=== PATIENT | male | born 1980 | race Caucasian/White ===

== ENCOUNTER 2017-08-15 15:18 | Observation (INO) | payer BC ==
[2017-08-15] MEDS ORDERED: TORADOL 30 MG VIAL IVP PRN (15:53)
[2017-08-15] MEDS: NS 1000 ML 1,000 ML IV SCH ×4 (16:49→22:32)
[2017-08-15 16:54] LABS: BASOPHILS % (AUTO) 0.4 % (0.2-1.0); EOSINOPHILS # (AUTO) 0.1 x10^3/uL (0.0-0.2); MONOCYTES # (AUTO) 0.5 x10^3/uL (0.3-0.8); NEUTROPHILS # (AUTO) 4.9 x10^3/uL (2.2-4.8); RED CELL DISTRIBUTION WIDTH 14.7 % (11.6-16.5)
[2017-08-15 16:58] LABS: HEMOGLOBIN 12.7 g/dL (13.5-18.0); LYMPHOCYTES # (AUTO) 0.9 X10^3/uL (1.3-2.9); LYMPHOCYTES % (AUTO) 13.6 % (21.0-51.0)
[2017-08-15 17:07] LABS: ALANINE AMINOTRANSFERASE 42 Units/L (12-78); ALKALINE PHOSPHATASE 89 Units/L (46-116); AMYLASE 38 Units/L (25-115); ASPARTATE AMINO TRANSFERASE 28 Units/L (15-37); BLOOD UREA NITROGEN 10 mg/dL (7-18); CALCIUM 8.8 mg/dL (8.5-10.1); CARBON DIOXIDE 27.1 mmol/L (21-32); CHLORIDE 103 mmol/L (98-107); CREATININE 1.18 mg/dL (0.70-1.30); LIPASE 95 Units/L (73-393); SODIUM 139 mmol/L (136-145); TOTAL PROTEIN 7.3 g/dL (6.4-8.2); eGFR BLACK RACES > 60 (>60); eGFR NON BLACK RACES > 60 (>60)
[2017-08-15 17:08] LABS: EOSINOPHILS % (AUTO) 1.4 % (0.9-2.9); HEMATOCRIT 36.5 % (42.0-54.0); MEAN CORPUSCULAR HEMOGLOBIN 28.5 pg (27.0-34.0); MEAN CORPUSCULAR HGB CONC 34.7 g/dL (33.0-35.0); MEAN CORPUSCULAR VOLUME 82.2 fL (80.0-100.0); MONOCYTES % (AUTO) 8.3 % (0.0-13.0); NEUTROPHILS % (AUTO) 76.3 % (42.0-75.0); RED BLOOD COUNT 4.44 X10^6/uL (4.7-6.0); WHITE BLOOD COUNT 6.4 X10^3/uL (3.6-10.0)
[2017-08-15 17:11] LABS: PLATELET COUNT 143 X10^3/uL (150.0-450.0)
[2017-08-15] MEDS: PEPCID 20 MG IV PREMIX* 20 MG/50 ML BAG IV SCH ×2 (17:31→22:30)
[2017-08-15] MEDS: PROTONIX INJ 40 MG VIAL IVP SCH ×2 (17:31→22:31)
[2017-08-15] MEDS ORDERED: ZOFRAN INJ 4 MG VIAL IVP PRN (21:24)
[2017-08-16] MEDS: NS 1000 ML 1,000 ML IV SCH ×2 (00:38→06:30)
[2017-08-16 04:52] LABS: BILIRUBIN,URINE NEGATIVE (NEGATIVE); BLOOD/HEMOGLOBIN,URINE NEGATIVE (NEGATIVE); GLUCOSE, URINE NEGATIVE (NEGATIVE); KETONES,URINE NEGATIVE (NEGATIVE); LEUKOCYTE ESTERASE ,URINE NEGATIVE (NEGATIVE); NITRITES,URINE NEGATIVE (NEGATIVE); PROTEIN,URINE NEGATIVE (NEGATIVE); UROBILINOGEN,URINE NORMAL (NORMAL)
[2017-08-16 05:16] LABS: APPEARANCE,URINE CLEAR (CLEAR); BACTERIA,URINE NEGATIVE /HPF (NEGATIVE); COLOR,URINE YELLOW (YELLOW); RBC,URINE NONE SEEN /HPF (NEGATIVE); SQUAMOUS EPITHELIAL CELL,UR RARE /HPF (NEGATIVE)
[2017-08-16 05:32] LABS: ALANINE AMINOTRANSFERASE 36 Units/L (12-78); ALBUMIN 3.2 g/dL (3.4-5.0); ALKALINE PHOSPHATASE 71 Units/L (46-116); ASPARTATE AMINO TRANSFERASE 28 Units/L (15-37); BLOOD UREA NITROGEN 11 mg/dL (7-18); CALCIUM 7.9 mg/dL (8.5-10.1); CARBON DIOXIDE 25.6 mmol/L (21-32); CHLORIDE 108 mmol/L (98-107); COR CA(FOR HYPOALB) 8.5 mg/dL (8.5-10.1); CREATININE 1.13 mg/dL (0.70-1.30); SODIUM 141 mmol/L (136-145); TOTAL PROTEIN 5.9 g/dL (6.4-8.2); eGFR BLACK RACES > 60 (>60); eGFR NON BLACK RACES > 60 (>60)
[2017-08-16 05:56] LABS: BASOPHILS % (AUTO) 0.5 % (0.2-1.0); EOSINOPHILS # (AUTO) 0.1 x10^3/uL (0.0-0.2); EOSINOPHILS % (AUTO) 3.1 % (0.9-2.9); HEMATOCRIT 35.9 % (42.0-54.0); HEMOGLOBIN 12.7 g/dL (13.5-18.0); LYMPHOCYTES # (AUTO) 0.9 X10^3/uL (1.3-2.9); LYMPHOCYTES % (AUTO) 21.3 % (21.0-51.0); MEAN CORPUSCULAR HGB CONC 35.5 g/dL (33.0-35.0); MEAN CORPUSCULAR VOLUME 81.8 fL (80.0-100.0); MEAN PLATELET VOLUME 9.3 fL (7.4-11.0); MONOCYTES # (AUTO) 0.4 x10^3/uL (0.3-0.8); MONOCYTES % (AUTO) 9.9 % (0.0-13.0); NEUTROPHILS # (AUTO) 2.7 x10^3/uL (2.2-4.8); NEUTROPHILS % (AUTO) 65.2 % (42.0-75.0); PLATELET COUNT 162 X10^3/uL (150.0-450.0); RED BLOOD COUNT 4.39 X10^6/uL (4.7-6.0); RED CELL DISTRIBUTION WIDTH 14.5 % (11.6-16.5); WHITE BLOOD COUNT 4.2 X10^3/uL (3.6-10.0)
[2017-08-16] MEDS ORDERED: NS 100 ML IV 100 ML IV ONE (06:00)
[2017-08-16] MEDS ORDERED: K-RIDER 10 MEQ/NS 100 ML 10 MEQ/100 ML BAG IV PRN (06:22)
[2017-08-16] MEDS ORDERED: K-DUR TAB 20 MEQ PO PRN (06:22)
[2017-08-16] MEDS ORDERED: POTASSIUM CHLORIDE LIQ 20 MEQ UDC PO PRN (06:22)
[2017-08-16] MEDS ORDERED: K-LYTE EFFERVESCENT PO PRN (06:22)
--- NOTE | 2017-08-16 08:22 | DR.UPDATE ---
H&P Update History and Physical Update: WAS SEEN IN THE OFFICE ON 08/15/17. A H&P WAS COMPLETED PRIOR TO ADMISSION. PATIENT HAS BEEN SEEN AND EXAMINED WITH NO CHANGES NOTED TO H&P. Changes noted: NO Yes with the following:
[2017-08-16] MEDS: PEPCID 20 MG IV PREMIX* 20 MG/50 ML BAG IV SCH (09:11)
[2017-08-16] MEDS: PROTONIX INJ 40 MG VIAL IVP SCH (09:11)
--- NOTE | 2017-08-16 09:22 | CT ---
HISTORY: Abdominal pain, diarrhea Study: CT abdomen pelvis with and without contrast Comparison: None Technique: Axial pre and postcontrast images with coronal and sagittal reformats. Dose reduction proc edures were used with mA/kv adjusted for body size. Findings: The lung bases are clear with the exception of bibasilar subsegmental atelectasis. The liver, spleen, adrenal glands, and pancreas are within normal limits. No uptake stones are visible within the gallb ladder. The kidneys are unobstructed without masses or stones. No ureteral calculi are identified. Th e appendix is normal. No significant intraperitoneal or retroperitoneal lymphadenopathy is identified . There are no findings to suggest diverticulitis or colitis. Examination of the pelvis demonstrated no evidence for pelvic masses, pelvic fluid, or pelvic lymphadenopathy. No lytic or blastic skeletal lesions are identified. IMPRESSION: No significant abnormality identified Reported By:
[2017-08-16 12:51] VITALS: BP 132/77
== END 2017-08-16 12:52 | disposition home or self-care (01) ==
LOC: MED/SURG 15:18
PROVIDERS: ADMIT Internal Medicine; ATTEND Internal Medicine
DX: R10.84 Generalized abdominal pain (principal); R19.7 Diarrhea, unspecified; R11.2 Nausea with vomiting, unspecified; E66.8 Other obesity; E78.2 Mixed hyperlipidemia; E55.9 Vitamin D deficiency, unspecified; E29.1 Testicular hypofunction; I10 Essential (primary) hypertension; R53.1 Weakness; D64.89 Other specified anemias
CPT/HCPCS: 36415; 74178; 80053; 81001; 82150; 83690; 85025; A4216; A4222; C9113; S0028; G0378; J2405